=== PATIENT | female | born 1955 | race Caucasian/White ===

== ENCOUNTER 2017-02-08 06:20 | Emergency (ER) | payer MEDICAID ==
[~2017-02-08] VITALS: Ht 165.1 cm; Wt 63.5 kg
[2017-02-08] MEDS ORDERED: Magnesium 1GM/D5W 100ML PREMIX 200 ML IV ONE (06:27)
[2017-02-08] MEDS ORDERED: DEXAMETHASONE SOD PHOSPHATE 10 MG/ML VIAL ONE (06:30)
[2017-02-08] MEDS ORDERED: DEXAMETHASONE SOD PHOSPHATE 10 MG/ML VIAL IV ONE (06:30)
[2017-02-08] MEDS ORDERED: IV SET PRIMARY 1 EA INFUS.SET MC ONE (06:30)
[2017-02-08] MEDS ORDERED: IPRATROPIUM NEB FS 0.5 MG/2.5 ML AMPUL.NEB NEB ONE (06:30)
[2017-02-08] MEDS ORDERED: IV NS 0.9% 500 ML IV ONE ×2 (06:30)
[2017-02-08] MEDS ORDERED: Magnesium 1GM/D5W 100ML PREMIX 100 ML IV ONE ×2 (06:30→07:50)
[2017-02-08] MEDS ORDERED: ALBUTEROL FS 2.5 MG/3 ML VIAL.NEB CONTNEB ONE (06:30)
[2017-02-08] MEDS ORDERED: ALBUTEROL FS 2.5 MG/3 ML VIAL.NEB ONE ×2 (06:31→10:03)
[2017-02-08] MEDS ORDERED: IPRATROPIUM NEB FS 0.5 MG/2.5 ML AMPUL.NEB ONE (06:31)
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
--- NOTE | 2017-02-08 06:38 | NUR ---
URINE COLLECTED. 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
--- NOTE | 2017-02-08 06:44 | NUR ---
RT AT BEDSIDE FOR BREATHING TX.
--- NOTE | 2017-02-08 06:45 | NUR ---
XRAY AT BEDSIDE FOR EVAL.
[2017-02-08 06:47] LABS: BASOPHILS # (AUTO) 0.2 /CMM (0.0-0.2); BASOPHILS % (AUTO) 1.2 % (0.0-2.0); EOSINOPHILS # (AUTO) 0.4 /CMM (0.0-0.7); EOSINOPHILS % (AUTO) 2.8 % (0.0-6.0); HEMATOCRIT 42 % (33-45); LYMPHOCYTES # (AUTO) 3.3 /CMM (0.8-4.8); MEAN CORPUSCULAR HEMOGLOBIN 30 PG (26.0-33.0); MEAN CORPUSCULAR HGB CONC 34 g/dl (31.0-36.0); MEAN CORPUSCULAR VOLUME 89 fL (82-100); MONOCYTES # (AUTO) 0.7 /CMM (0.1-1.30); MONOCYTES % (AUTO) 5.6 % (2.0-12.0); NEUTROPHILS # (AUTO) 8.3 /CMM (1.8-8.9); NEUTROPHILS % (AUTO) 64.4 % (43.0-81.0); PLATELET COUNT (AUTO) 379 /CMM (150-450); RED BLOOD CELL COUNT(AUTO) 4.68 MIL/uL (4.0-5.2); WHITE BLOOD COUNT (AUTO) 12.9 K/uL (4.3-11.0)
[2017-02-08 07:00] LABS: CALCIUM, SERUM 8.7 mg/dL (8.5-10.1); CARBON DIOXIDE 25 mmol/L (21-32); CHLORIDE 103 mmol/L (98-107); GFR 56 mL/min (>60); GLUCOSE 140 mg/dL (74-106); SODIUM SERUM 141 mmol/L (136-145); UREA NITROGEN, BLOOD 13 mg/dL (7-18)
[2017-02-08 07:08] LABS: TROPONIN I < 0.017 ng/mL (0.00-0.056)
[2017-02-08] MEDS ORDERED: POTASSIUM CHLORIDE 20 MEQ TAB.PRT.SR PO ONE ×2 (07:10→07:30)
[2017-02-08 07:12] LABS: B-TYPE NATRIURETIC PEPTIDE 138 PG/ML (0-125)
--- NOTE | 2017-02-08 07:12 | NUR ---
REPORT GIVEN TO ARCADIO VARGHESE FOR LUARITA.
--- NOTE | 2017-02-08 07:15 | NUR ---
RECEIVED REPORT FROM MOY ERVIN. PT IN BED AWAKE ORIENTED. RESPIRATION EVEN . DENIES ANY PAIN. PLACED IN COMFORTABLE POSITION.
[2017-02-08] MEDS ORDERED: OLANZAPINE 5 MG/TAB.RAPDIS ONE (07:49)
[2017-02-08] MEDS ORDERED: OLANZAPINE 5 MG TABLET PO ONE (08:00)
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
--- NOTE | 2017-02-08 08:07 | NUR ---
JENINFER GAN CALLED [phone], ETA ~ 60 MIN
--- NOTE | 2017-02-08 09:00 | NUR ---
PINKY SW AT BEDSIDE FOR PSYCH EVAL
[2017-02-08] MEDS ORDERED: ALBUTEROL FS 2.5 MG/3 ML VIAL.NEB NEB ONE (10:00)
--- NOTE | 2017-02-08 10:00 | NUR ---
PAGED RT FOR BREATHING TX
--- NOTE | 2017-02-08 10:07 | NUR ---
[facility] called [phone]
--- NOTE | 2017-02-08 11:20 | NUR ---
Patient discharged to home in stable condition. Written and verbal after care instructions given. Patient verbalizes understanding of instruction.IV removed. Catheter intact and site benign. Pressure and 4x4 applied to site. No bleeding noted. Prescription given to patient.
[2017-02-08 11:21] VITALS: BP 130/85
== END 2017-02-08 11:22 | disposition home or self-care (01) ==
LOC: ER 06:23
DX: J44.1 Chronic obstructive pulmonary disease with (acute) exacerbation (principal); F17.210 Nicotine dependence, cigarettes, uncomplicated; Z88.0 Allergy status to penicillin; Z88.6 Allergy status to analgesic agent; Z88.5 Allergy status to narcotic agent
CPT/HCPCS: 36415; 71010-TC; 80048-TC; 83880; 84484-TC; 85025-TC; A4606; J1100; J3475; J7040; Z7610